=== PATIENT | female | born 1935 | race Caucasian/White ===

== ENCOUNTER 2021-09-11 12:56 | Observation (INO) ==
[2021-09-11] MEDS ORDERED: DILTIAZEM 50 MG/10 ML VIAL IV STA (13:16)
[2021-09-11 13:49] LABS: Basophils % 0.2 % (0.0-0.8); Eosinophils # 0.1 10*3/uL (0.0-0.87); Eosinophils % 1.2 % (0.00-10.9); Hemoglobin 12.1 GM/DL (12.0-16.0); Immature Granulocytes % 0.2 %; Immature Granulocytes Absolute 0.01 #; Lymphocytes # 1.3 10*3/uL (1.4-4.0); Lymphocytes % 24.7 % (21.3-54.2); Mean Corpuscular Volume 83.2 FL (87-102); Mean Platelet Volume 10.4 FL (9.6-12.0); Monocytes % 5.7 % (1.7-12.7); Platelet Count 177 T/CUMM (130-400); Red Blood Count 4.69 MC/CUMM (3.8-5.5); Red Cell Distribution Width 15.6 % (9.3-17.3); White Blood Count 5.1 T/CUMM (4-12)
[2021-09-11 14:02] LABS: PT Patient Result 11.6 SECS (10.5-12.0); Partial Thromboplastin Time 22.2 SECS (23.8-32.1)
[2021-09-11] MEDS: DILTIAZEM INJ 100 MG in SODIUM CHLORIDE 0.9% 100 ML IV SCH (14:03)
[2021-09-11 14:07] LABS: Albumin 3.5 G/DL (3.4-5.0); Bilirubin,Total 0.8 MG/DL (0.20-1.00); Calcium 8.8 MG/DL (8.5-10.1); Osmolality,Calculated 284.3 MOS/KG (273-304); Potassium 3.9 MMOL/L (3.5-5.1); Total Protein 6.5 G/DL (6.4-8.2)
[2021-09-11] MEDS ORDERED: guaiFENesin/DM ER 600-30 MG TABLET PO PRN (14:16)
[2021-09-11] MEDS ORDERED: MORPHINE 2 MG/1 ML SYRINGE IV PRN (14:16)
[2021-09-11] MEDS ORDERED: BISACODYL 5 MG TABLET PO PRN (14:16)
[2021-09-11] MEDS ORDERED: MAGNESIUM SULF RIDER 2 GM/50 ML PREMIX IV PRN (14:16)
[2021-09-11] MEDS ORDERED: ACETAMINOPHEN 325 MG TABLET PO PRN (14:16)
[2021-09-11] MEDS ORDERED: MAGNESIUM SULF RIDER 4 GM/100 ML PREMIX IV PRN (14:16)
[2021-09-11] MEDS ORDERED: ZALEPLON 5 MG CAPSULE PO PRN (14:16)
[2021-09-11] MEDS ORDERED: LACTULOSE 20 GM/30 ML UDCUP PO PRN (14:16)
[2021-09-11] MEDS ORDERED: ONDANSETRON 4 MG/2 ML VIAL IV PRN (14:16)
[2021-09-11] MEDS ORDERED: diphenhydrAMINE CAP 25 MG CAPSULE PO PRN (14:16)
[2021-09-11] MEDS ORDERED: CALCIUM CARBONATE CHEW 500 MG TABLET PO PRN (14:16)
[2021-09-11] MEDS ORDERED: SIMETHICONE CHEW 125 MG TABLET PO PRN (14:16)
[2021-09-11] MEDS: ALUMINUM/MAGNES/SIMETH MAX STR 30 ML UDCUP PO PRN (18:11)
[2021-09-11] MEDS: APIXABAN 5 MG TABLET PO SCH (20:51)
[2021-09-11] MEDS: METOPROLOL SUCCINATE XL 50 MG TABLET PO SCH (20:51)
[2021-09-11] MEDS ORDERED: METOPROLOL SUCCINATE XL 25 MG TABLET PO SCH (21:00)
[2021-09-12 03:52] LABS: Basophils % 0.4 % (0.0-0.8); Eosinophils # 0.1 10*3/uL (0.0-0.87); Eosinophils % 1.4 % (0.00-10.9); Hematocrit 33.4 VOL% (35.7-47.0); Hemoglobin 10.5 GM/DL (12.0-16.0); Immature Granulocytes % 0.2 %; Immature Granulocytes Absolute 0.01 #; Lymphocytes # 1.5 10*3/uL (1.4-4.0); Lymphocytes % 30.8 % (21.3-54.2); Mean Corpuscular HGB Conc 31.4 GM/DL (32-36); Mean Corpuscular Volume 83.3 FL (87-102); Mean Platelet Volume 10.3 FL (9.6-12.0); Monocytes % 8.1 % (1.7-12.7); Neutrophils % 59.1 % (38.7-73.9); Platelet Count 197 T/CUMM (130-400); Red Blood Count 4.01 MC/CUMM (3.8-5.5); Red Cell Distribution Width 15.7 % (9.3-17.3); White Blood Count 4.9 T/CUMM (4-12)
[2021-09-12 04:22] LABS: Calcium 8.6 MG/DL (8.5-10.1); Osmolality,Calculated 281.3 MOS/KG (273-304); Potassium 3.8 MMOL/L (3.5-5.1); Risk Ratio 4.64; Thyroid Stimulating Hormone 1.49 uIU/ml (0.358-3.74); VLDL Cholesterol 20.2 MG/DL
[2021-09-12] MEDS: PANTOPRAZOLE 40 MG TABLET PO SCH (08:43)
[2021-09-12] MEDS: ASPIRIN EC 81 MG TABLET PO SCH (08:43)
[2021-09-12] MEDS: METOPROLOL SUCCINATE XL 50 MG TABLET PO SCH ×2 (08:43→22:01)
[2021-09-12] MEDS: APIXABAN 5 MG TABLET PO SCH ×2 (08:43→22:01)
[2021-09-12] MEDS ORDERED: SELENIUM 200 MCG TABLET PO SCH (09:00)
[2021-09-12] MEDS: ALUMINUM/MAGNES/SIMETH MAX STR 30 ML UDCUP PO PRN ×3 (11:09→22:01)
[2021-09-12] MEDS ORDERED: POTASSIUM CHLORIDE 20 MEQ TABLET PO ONE (13:43)
[2021-09-12] MEDS: AMIODARONE 200 MG TABLET PO SCH ×2 (14:59→22:01)
[2021-09-12] MEDS: ASCORBIC ACID 500 MG TABLET PO SCH ×2 (14:59→22:01)
[2021-09-12] MEDS: DILTIAZEM INJ 100 MG in SODIUM CHLORIDE 0.9% 100 ML IV SCH (15:11)
[2021-09-12] MEDS ORDERED: SODIUM CHLORIDE 0.9% 1,000 ML IV SCH (15:30)
[2021-09-13 04:43] LABS: Basophils % 0.3 % (0.0-0.8); Eosinophils # 0.1 10*3/uL (0.0-0.87); Eosinophils % 0.9 % (0.00-10.9); Hematocrit 35.6 VOL% (35.7-47.0); Hemoglobin 11.1 GM/DL (12.0-16.0); Immature Granulocytes % 0.5 %; Immature Granulocytes Absolute 0.03 #; Lymphocytes # 1.3 10*3/uL (1.4-4.0); Lymphocytes % 21.7 % (21.3-54.2); Mean Corpuscular HGB Conc 31.2 GM/DL (32-36); Mean Corpuscular Volume 83.4 FL (87-102); Mean Platelet Volume 10.3 FL (9.6-12.0); Monocytes % 7.1 % (1.7-12.7); Neutrophils % 69.5 % (38.7-73.9); Platelet Count 198 T/CUMM (130-400); Red Blood Count 4.27 MC/CUMM (3.8-5.5); Red Cell Distribution Width 15.6 % (9.3-17.3); White Blood Count 5.8 T/CUMM (4-12)
[2021-09-13 05:02] LABS: Calcium 8.9 MG/DL (8.5-10.1); Osmolality,Calculated 280.5 MOS/KG (273-304); Potassium 4.3 MMOL/L (3.5-5.1)
[2021-09-13 05:15] VITALS: BP 150/99
[2021-09-13] MEDS ORDERED: SELENIUM 200 MCG TABLET PO SCH (09:00)
[2021-09-13] MEDS: APIXABAN 5 MG TABLET PO SCH ×2 (09:29→12:00)
[2021-09-13] MEDS: ASPIRIN EC 81 MG TABLET PO SCH ×2 (09:29→12:00)
[2021-09-13] MEDS: AMIODARONE 200 MG TABLET PO SCH ×2 (09:29→12:00)
[2021-09-13] MEDS: ASCORBIC ACID 500 MG TABLET PO SCH (09:30)
[2021-09-13] MEDS: METOPROLOL SUCCINATE XL 50 MG TABLET PO SCH ×2 (09:30→11:59)
[2021-09-13] MEDS: PANTOPRAZOLE 40 MG TABLET PO SCH ×2 (09:30→12:00)
[2021-09-13] MEDS ORDERED: ALUM/MAG/SIMETH/LIDO VISC 1:1 30 ML BOTTLE PO ONE (09:39)
== END 2021-09-13 12:56 | disposition home or self-care (01) ==
LOC: EDBD → EDUNIT# → N.EDINP 12:56 → N.ED 12:56 → N.TELEN 19:45
PROVIDERS: ADMIT Internal Medicine Cardiovascular Disease; ATTEND Internal Medicine Cardiovascular Disease